=== PATIENT | male | born 1995 ===

== ENCOUNTER 2018-02-04 02:23 | Emergency (ER) | payer SELFPAY ==
[~2018-02-04] VITALS: Ht 172.7 cm; Wt 77.1 kg
[2018-02-04 02:25] VITALS: BP_SYST 115; BP_SYST 134
--- NOTE | 2018-02-04 02:25 | NUR ---
Brought in by Officer in custody for medical clearance. Patient to ER bed 4 to gown for evaluation. Side rails up.
--- NOTE | 2018-02-04 02:25 | NUR ---
Patient to ER bed 4 to gown for evaluation. Side rails up. Report given to Juliann MONTENEGRO.
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
--- NOTE | 2018-02-04 02:46 | NUR ---
ER MD Ramirez at bedside evaluating the patient
[2018-02-04] MEDS ORDERED: KETOROLAC TROMETHAMINE 60 MG/2 ML VIAL IM ONE (03:00)
[2018-02-04 03:23] VITALS: BP_SYST 130
--- NOTE | 2018-02-04 03:23 | NUR ---
Patient discharged in custody of law enforcement, given written and verbal discharge instructions and verbalizes understanding. ER MD Ramirez discussed with patient the results and treatment provided. Patient in stable condition. ID arm band removed. Rx of motrin given. Patient educated on pain management and to follow up with PMD. Pain Scale 0/10. Opportunity for questions provided and answered. Medication side effect fact sheet provided.
== END 2018-02-04 03:23 ==
LOC: SED 02:23
DX: S20.211A Contusion of right front wall of thorax, initial encounter (principal); S50.01XA Contusion of right elbow, initial encounter; J45.909 Unspecified asthma, uncomplicated; R03.0 Elevated blood-pressure reading, without diagnosis of hypertension; W50.1XXA Accidental kick by another person, initial encounter; Y93.89 Activity, other specified; Y92.89 Other specified places as the place of occurrence of the external cause; Y99.8 Other external cause status
CPT/HCPCS: 96372; 99283; J1885